=== PATIENT | female | born 1990 | race Caucasian/White ===

== ENCOUNTER 2017-02-08 14:53 | Outpatient (CLI) | payer OTHER ==
--- NOTE | 2017-02-08 16:04 | DIAGNOSTIC IMAGING REPORT ---
PROCEDURE: US OB 1ST TRIMESTER W/TRANSVAG INDICATION: SIZE AND DATES TECHNIQUE: Valero scale, color, and spectral Doppler transabdominal sonographic images of the first trimester gravid uterus were obtained. COMPARISON: Pelvic ultrasound dated 06/11/2016 FINDINGS: TRANSABDOMINAL SCANS: No evidence of intra or extra uterine . IMPRESSION: 1. No evidence of extrauterine or intrauterine .
== END 2017-02-08 23:00 ==
LOC: US SRH 14:53
DX: Z32.02 Encounter for pregnancy test, result negative (principal)

== ENCOUNTER 2017-02-16 13:45 | Outpatient (CLI) | payer OTHER ==
--- NOTE | 2017-02-16 14:35 | DIAGNOSTIC IMAGING REPORT ---
PROCEDURE: US COMPLETE PELVIC W/TRANSVAG INDICATION: PELVIC PAIN TECHNIQUE: Transabdominal and endovaginal mustafa scale and color Doppler sonographic images of the female pelvis were obtained. COMPARISON: Pelvic ultrasound 06/11/2016 FINDINGS: TRANSABDOMINAL SCANS: The uterus is of normal size 812 1 x 2.8 x 4.9 cm Kidneys are normal. TRANSVAGINAL SCANS: The uterus is anteverted. Myometrium is normal. The endometrium measures 6.1 mm. Right ovary is normal measuring 4.0 x 2.5 x 3.0 cm The left ovary is normal measuring 3.2 x 1.7 x 2.2 cm IMPRESSION: 1. Normal uterus and ovaries and kidneys.
== END 2017-02-16 23:00 ==
LOC: US SRH 13:45
DX: R10.2 Pelvic and perineal pain (principal)

== ENCOUNTER 2017-02-28 13:58 | Outpatient (CLI) | payer OTHER ==
--- NOTE | 2017-02-28 15:31 | DIAGNOSTIC IMAGING REPORT ---
PROCEDURE: US NONVASCULAR EXTREMITY-RIGHT INDICATION: OLIGOMENORRHEA TECHNIQUE: Valero scale and color Doppler duplex ultrasound of the right axilla. COMPARISON: None. FINDINGS: Normal soft tissues without evidence of a mass, inflammatory process of fluid collection. Left axilla was examined for comparison and had a similar appearance. IMPRESSION: 1. No evidence of a right axillary mass 2. Results discussed with Rachele Sterling (Dr. Whitney).
== END 2017-02-28 23:00 ==
LOC: US SRH 13:58
DX: R22.31 Localized swelling, mass and lump, right upper limb (principal); N91.5 Oligomenorrhea, unspecified